=== PATIENT | male | born 1960 | race Caucasian/White ===

== ENCOUNTER → 2018-06-13 09:41 | Outpatient (CLI) | payer BC, SELFPAY ==
--- NOTE | 2018-06-13 09:46 | XR_ITS ---
EXAM: XR cervical spine 5V HISTORY: Neck pain ITS.REASON: BILAT HAND NUMBNESS ORDERING PHYSICIAN: Gerardo Aponte MD PATIENT AGE: 58 years COMPARISON: None FINDINGS: There is straightening of the normal curvature suggesting muscle spasm. C1-C7 appear intact. There is prominent anterior ossific spurring at C5-6 and C6-7 levels. There is endplate sclerosis at the C6-7 disc space along with mild narrowing of the C5-6 disc space as well. Oblique films show mild neural foraminal narrowing bilaterally at the C5-6 level secondary to spurring of the uncinate joints. The prevertebral soft tissues are normal and the odontoid is normal.. IMPRESSION: Mild to moderate degenerative disc disease C5-6 and C6-7 with mild neural foraminal narrowing bilaterally at C5-6 and possibly mild muscle spasm as well
== END ==
PROVIDERS: PCP Family Medicine; Visit Provider Family Medicine
DX: R20.0 Anesthesia of skin (principal)
CPT/HCPCS: 72050

== ENCOUNTER → 2018-07-04 07:48 | Outpatient (CLI) | payer BC, SELFPAY | PROVIDERS: PCP Nurse Practitioner; Visit Provider Nurse Practitioner | DX: R00.2 Palpitations (principal) | CPT/HCPCS: 93017 ==

== ENCOUNTER → 2018-07-24 13:44 | Outpatient (CLI) | payer BC, SELFPAY ==
--- NOTE | 2018-07-24 13:54 | XR_ITS ---
XR chest 2V HISTORY: ITS.REASON: angina, diziness, lightheadedness, smoker ORDERING PHYSICIAN: Vickey Barraza MD PATIENT AGE: 58 years COMPARISON: None FINDINGS: The cardiomediastinal silhouette and pulmonary vascularity are within normal limits. Coarsened bronchovascular markings are present and may be related to smoking-related lung disease. No lobar consolidation or collapse. No acute bony anomalies. IMPRESSION: Coarsening of the bronchovascular markings which may be related to smoking-related lung disease.
== END ==
PROVIDERS: PCP Family Medicine; Visit Provider Internal Medicine
DX: I20.9 Angina pectoris, unspecified (principal); R42 Dizziness and giddiness; R94.39 Abnormal result of other cardiovascular function study; E78.5 Hyperlipidemia, unspecified; E11.8 Type 2 diabetes mellitus with unspecified complications
CPT/HCPCS: 71046

== ENCOUNTER → 2018-08-01 11:34 | Outpatient (CLI) | payer BC, SELFPAY ==
--- NOTE | 2018-08-01 11:37 | NM_ITS ---
History and Indications: History of SC, diabetes, hyperlipidemia, tobacco use, family history, palpitations and syncope Procedure: Patient exercised on Noel protocol 8 minutes and 25 seconds, resting heart rate was 82 bpm resting blood pressure 133/77, with exercise maximum heart rate achieved was 1 21 bpm which is equal to 74% of the maximum predicted heart rate and a blood pressure was 170/78. Test was started due to shortness of breath patient denied any complained of chest pain. Patient has good exercise capacity achieved 10.1mets of workload on treadmill, the blood pressure response to exercise was normal. Patient did not achieve the target heart rate. Electrocardiogram: Resting electrocardiogram showed the sinus rhythm rightward axis, with exercise there is less than 1.[address] segment depression noted from the baseline EKG. The EKG portion of the exercise Myoview is nondiagnostic as patient did not achieve the target heart rate. Cardiac stress and resting SPECT images: Cardiac stress and resting SPECT images were obtained using technetium 99 Myoview 30.7 mCi stress and 10.2 mCi at rest. Gated SPECT further analysis of segmental wall motion and calculation of the ejection fraction also done. Cardiac stress and resting SPECT images show a mild fixed defect in the inferior wall with normal contractility gated SPECT is likely secondary to soft tissue attenuation, computer derived ejection fraction is 57% with no regional wall motion abnormality. Right ventricle is normal size and contractility. Conclusion: 1. The EKG portion of the exercise Myoview is nondiagnostic as patient did not achieve the target heart rate, patient has good exercise capacity achieved 10.1mets of workload on treadmill, the blood pressure response to exercise was adequate, test was started due to shortness of breath patient denied any complained of chest pain. 2. No scintigraphic evidence of reversible ischemia seen at this level of exercise, computer derived ejection fraction is 77% with no regional wall motion abnormality, right ventricle is normal size and contractility.
--- NOTE | 2018-08-01 13:55 | CA_ITS ---
PROCEDURE: 2-D M-mode and color Doppler study INDICATIONS FOR THE TEST: Chest painX COPD Heart Murmur Tobacco SmokingX Palpitations Fatigue Syncope Edema Hypertension Diabetes MellitusX Rheumatic Fever SOBXDOE ObesityXHyperlipidemiaX Family History HD Additional History ABN GXT,DIZZINESS,SOA PATIENT INFORMATION HEIGHT: 73 WEIGHT:255 GENDER: Male B/P:119/77 2-D/M-MODE INTERPRETATION: 2-D MEASUREMENTS OBSERVED VALUES IN CMS Right Ventricular Dimension (RVDd) 2.2 Interventricular Septum (Thickness)(IVsd) 1.0 Left Ventricular Internal Dimensions(LVIDd) 5.6 Left Ventricular Posterior Wall (Thickness)(LVPWd) .8 Aortic Root 2.9 Aortic Cusp Separation 1.8 Left Atrial Dimensions (LAD) 3.6 2D 1. Left atrium is mildly enlarged, left ventricle is normal size, there is mild concentric left ventricular hypertrophy, visually estimated ejection fraction 60-65% with no regional wall motion abnormality. 2. The right atrium and right ventricle are normal size and contractility. 3. The aortic valve is minimally thickened and fibrosed. 4. The mitral and tricuspid valve leaflets are grossly normal. 5. The pulmonic valve is poorly present. 6. No significant pericardial effusion noted. DOPPLER INTERROGATION: Doppler interrogation of the aortic, mitral and tricuspid valve mild mitral and tricuspid regurgitation, tricuspid regurgitation jet velocity is inadequate for calculation of the right ventricular systolic pressure, grade 1 diastolic dysfunction seen without tissue Doppler evidence of raised left atrial pressure. CONCLUSION: 1. Mildly enlarged left atrium, normal left ventricular size, mild concentric left ventricular hypertrophy, visually estimated ejection fraction of 60-65% with no regional wall motion abnormality, grade 1 diastolic dysfunction seen without tissue Doppler evidence of raised left atrial pressure. 2. Mild mitral and tricuspid regurgitation 3. No significant pericardial effusion noted.
== END ==
PROVIDERS: PCP Family Medicine; Visit Provider Internal Medicine
DX: R94.39 Abnormal result of other cardiovascular function study (principal); E11.8 Type 2 diabetes mellitus with unspecified complications; E78.5 Hyperlipidemia, unspecified; I20.9 Angina pectoris, unspecified; R42 Dizziness and giddiness
CPT/HCPCS: 78452; 93017; 93306; A9502; J2785

== ENCOUNTER → 2019-08-20 07:59 | Outpatient (CLI) | payer BC, SELFPAY ==
--- NOTE | 2019-08-20 08:02 | CT_ITS ---
PROCEDURE: CT LUNG SCREENING CLINICAL INDICATION: CURRENT TOBACCO USE One hundred pack-year smoking history, asymptomatic for lung cancer COMPARISON: No exams were available for comparison TECHNIQUE: The exam was performed on a GE Light Speed [address] scanner using 2.90 mGy CTDI. A low dose helical CT CHEST was performed on a multi-detector scanner. All CT scans at the facility use one or more dose reduction, viz: automated exposure control, ma/kV adjustment per patient size (including targeted exams where dose is matched to indication, i.e. head), or iterative reconstruction technique. The LDCT was performed in a facility that meets the criteria for the screening program. Data regarding this exam was submitted to [employer] which is an approved registry. The order for this exam indicates that it came as a result of a lung cancer screening counseling shard decision-making visit that included all the elements required of such a visit including smoking cessation. The radiologist interpreting this exam meets the CMS criteria for the LDCT lung cancer screening program. The exam is reported using the Lung-RADS classification scale and reported to the [employer]CR registry. NOTE: This study was performed for the specific purposes of lung cancer screening and is not an alternative to diagnostic chest CT. RADIATION DOSE: CTDI vol(CT dose Index-volume) = 2.90mG DLP (Dose Length Product) = 114.38 mGcm FINDINGS: COPD with centrilobular emphysema. There is scattered atelectatic/fibrotic changes with evidence of old granulomatous disease in a few small nodular opacities which are 4 mm or less. No suspicious nodules. OTHER FINDINGS: Cholelithiasis IMPRESSION: Lung rads category 2 benign findings. COPD with centrilobular emphysema Cholelithiasis. Recommend 12 month LDCT follow-up Dictated by: Dimas Flores MD 08/24/2019 10:11 Electronically signed by Dimas Flores MD in [place] 08/24/2019 10:11
== END ==
PROVIDERS: PCP Family Medicine; Visit Provider Family Medicine
DX: Z87.891 Personal history of nicotine dependence (principal); Z12.2 Encounter for screening for malignant neoplasm of respiratory organs